=== PATIENT | male | born 1940 | race Caucasian/White ===

== ENCOUNTER 2024-06-11 18:14 | Outpatient (REF) | payer SELFPAY ==
[2024-06-11 19:52] LABS: Abs Immature Grans 0.07 10^3/uL (0.0-0.06); Absolute Basophil Count 0.05 10^3/uL (0.0-0.2); Absolute Eosinophil Count 0.18 10^3/uL (0.0-0.7); Absolute Lymphocyte Count 0.97 10^3/uL (1.2-3.4); Absolute Monocyte Count 0.65 10^3/uL (0.1-0.8); Absolute Neutrophil Count 6.73 10^3/uL (1.2-6.7); Basophils % 0.6 %; Eosinophils % 2.1 %; HCT 35.2 % (40.0-50.0); HGB 11.2 g/dL (13.5-17.5); Immature Grans % 0.8 %; Lymphocytes % 11.2 %; MCH 31.5 pg (27.0-33.0); MCHC 31.8 % (32.0-36.0); MCV 99 fL (80-95); MPV 10.2 fL (8.0-11.0); Monocytes % 7.5 %; Neutrophils % 77.8 %; Platelet Count 192 10^3/uL (130-400); RBC 3.55 10^6/uL (4.36-5.78); RDW 14.5 % (11.8-14.1); RDW-SD 51.8 fL; WBC 8.65 10^3/uL (4.4-10.8)
[2024-06-11 20:22] LABS: Iron 90 ug/dL (65-175); Total Iron Binding Capacity 380 ug/dL (250-450); Transferrin Sat 24 % (20-55)
[2024-06-11 20:27] LABS: Hemoglobin A1C 5.5 % (<5.7)
[2024-06-11 20:43] LABS: ALT 19 U/L (16-63); AST 27 U/L (15-37); Albumin 3.8 g/dL (3.4-5.0); Alkaline Phosphatase 127 U/L (46-116); BUN 36 mg/dL (7-18); Bilirubin, Total 0.99 mg/dL (0.2-1.0); CREATININE 1.2 mg/dL (0.70-1.30); Calcium 9.5 mg/dL (8.5-10.1); Chloride 110 mmol/L (98-107); Ferritin 76 ng/mL (26-388); Folate > 20.0 ng/mL (8.6-20.0); Glucose 89 mg/dL (74-106); Magnesium 2.6 mg/dL (1.8-2.4); Potassium 4.3 mmol/L (3.5-5.1); Sodium 149 mmol/L (136-145); TSH (W/Ref FT4) 0.96 uIU/mL (0.36-3.74); Total Protein 6.8 g/dL (6.4-8.2); Vitamin B12 716 pg/mL (193-986)
[2024-06-11 21:01] LABS: NT-proBNP 502 pg/mL (<300)
== END 2024-06-11 18:15 | disposition home or self-care (01) ==
LOC: LBN 18:14
PROVIDERS: Visit Provider Nurse Practitioner Gerontology
DX: I50.9 Heart failure, unspecified (principal); R73.09 Other abnormal glucose; R53.82 Chronic fatigue, unspecified; I11.0 Hypertensive heart disease with heart failure; G89.4 Chronic pain syndrome; D52.9 Folate deficiency anemia, unspecified; D51.9 Vitamin B12 deficiency anemia, unspecified; E83.42 Hypomagnesemia
CPT/HCPCS: 80053; 82306; 82607; 82728; 82746; 83036; 83540; 83550; 83735; 83880; 84443; 85025

== ENCOUNTER 2024-07-02 19:02 | Outpatient (REF) | payer SELFPAY ==
[2024-07-02 20:18] LABS: ALT 18 U/L (16-63); AST 25 U/L (15-37); Alkaline Phosphatase 145 U/L (46-116); Anion Gap 11.6 mmol/L (3-11); BUN 44 mg/dL (7-18); Bilirubin, Total 0.65 mg/dL (0.2-1.0); CO2 27.4 mmol/L (21.0-32.0); CREATININE 1.2 mg/dL (0.70-1.30); Calcium 9.5 mg/dL (8.5-10.1); Chloride 110 mmol/L (98-107); Glucose 117 mg/dL (74-106); Potassium 4.3 mmol/L (3.5-5.1); Sodium 149 mmol/L (136-145); Total Protein 7.1 g/dL (6.4-8.2)
== END 2024-07-02 19:03 | disposition home or self-care (01) ==
LOC: LBN 19:02
PROVIDERS: Visit Provider Nurse Practitioner Gerontology
DX: E87.1 Hypo-osmolality and hyponatremia (principal)
CPT/HCPCS: 80053